=== PATIENT | female | born 1965 | race Two or more races ===

== ENCOUNTER → 2023-07-12 | Emergency (ER) | payer OTHER ==
[~2023-07-12] VITALS: Ht 162.6 cm; Wt 79.4 kg
[~2023-07-12] MED LIST: AMLODIPINE BESY10 MG PO; LISINOPRIL-HCT1 EAC1 PO; METOPROLOL SUCC25 MG PO
== END | disposition left against medical advice (07) ==
LOC: ER 04:01
DX: B34.9 Viral infection, unspecified (principal); I10 Essential (primary) hypertension; Z88.0 Allergy status to penicillin